=== PATIENT | male | born 1980 | race Native Hawaiian/Other Pacific Islander ===

== ENCOUNTER 2018-08-06 11:27 | Emergency (ER) | payer SELFPAY ==
[2018-08-06] MEDS ORDERED: IPRATROPIUM/ALBUTEROL SULFATE 3 ML AMPUL.NEB NEB ONE ×3 (11:29→13:59)
[2018-08-06] MEDS ORDERED: methylPREDNISolone SOD SUCC 125 MG/2 ML VIAL IVP ONE (11:30)
--- NOTE | 2018-08-06 11:37 | ED Physician Documentation ---
General Adult - HISTORIAN Historian: patient - HPI Stated Complaint: shortness of breath Chief Complaint: Wheezing Onset: days ago (2) Timing: still present Severity: moderate Further Comments: yes (He states that two days ago he was in a basement and he was exposed to smoke. He has a history of asthma and he has no meds currently due to insurance. Denies any fever or sick contacts. He states starting in middle of the night the wheezing started to increase. He states he has no health insurance so no asthma meds. He has triggers from time to time but has not had meds "in a while" He feels short on air and hears wheezing. He reports he has tried to do deep breathing to help lessen anxiety . No fever.) - ROS CONST: no problems - PAST HX Past History: asthma Immunizations: UTD Allergies/Adverse Reactions: Allergies Allergy/AdvReac Type Severity Reaction Status Date / Time No Known Allergies Allergy Verified 08/06/18 12:48 Home Medications: Ambulatory Orders Medication Instructions Recorded NK 08/06/18 - SOCIAL HX Smoking History: non-smoker Alcohol Use: none Drug Use: none - FAMILY HX Family History: No - REVIEWED ASSESSMENTS Nursing Assessment Reviewed: Yes Vitals Reviewed: Yes Progress - Progress Progress: 1200: discussed cxr results - he is feeling less shortness of air at this time DG 1250: per pt less shortness of air. Decreased wheezing in bases bilaterally. Exp wheezing in both upper lung hall DG 1336: decreased wheezing. No pain. DG 1354: Decrease in wheezing. Asking to go home DG 1425: Decrease further in wheezing. DG ED Results Lab/Radiology - Radiology Radiology Impressions: HISTORY: 37-year-old male with cough, wheezing, shortness of breath, former smoker. COMPARISON: None available. TECHNIQUE: Single portable AP view of the chest was performed. FINDINGS: No pneumothorax, consolidative infiltrates, or pulmonary edema. The heart is not enlarged. IMPRESSION: Unremarkable portable chest. Electronically signed on Aug 06, 2018 11:56:06 AM KITCHEN STEWARD by: Abner Spicer - Orders Orders: ED Orders Category Date Time Status Assess pulse oximetry Q1H Care 08/06/18 11:29 Ordered IV Started NOW Care 08/06/18 11:30 Ordered CBC/PLATELET/DIFF Routine Lab 08/06/18 Ordered CMP Routine Lab 08/06/18 Ordered Ipratropium/Albuterol Sulfate [Duoneb] Med 08/06/18 11:30 Discontinued 3 ml NEB .STK-MED ONE Ipratropium/Albuterol Sulfate [Duoneb] Med 08/06/18 11:29 Once 3 ml NEB NOW ONE methylPREDNISolone SOD SUCC [Solu-MEDROL] Med 08/06/18 11:30 Once 125 mg IVP NOW ONE Oxygen Daily Oxygen 08/06/18 11:30 Ordered General Adult Physical Exam - PHYSICAL EXAM GENERAL APPEARANCE: mild distress EENT: eye inspection normal, no signs of dehydration NECK: normal inspection RESPIRATORY: wheezes, other (mild resp distress. Wheezing noted in all lung hall. ) CVS: reg rate & rhythm, heart sounds normal, equal pulses, no murmur ABDOMEN: soft, no distension BACK: normal inspection SKIN: warm/dry, normal color EXTREMITIES: non-tender, normal range of motion, no evidence of injury, no edema NEURO: oriented X3 Discharge Clincal Impression: Asthma Qualifiers: Asthma severity: mild Asthma persistence: unspecified Asthma complication type: with acute exacerbation Qualified Code(s): J45.901 - Unspecified asthma with (acute) exacerbation Referrals: Primary Doctor,No [Primary Care Provider] - 2 Days Comments: 1. Fill inhaler RX 2. Albuterol solution in neb machine every 4 hours as needed for cough or wheezing 3. Medrol Dose pack start in am - as directed 4. Increase fluids 5. Avoid exposures 6. Follow up with PCP in 2-4 days 7. Return to ER for any concerns Condition: Stable Disposition: 01 HOME, SELF-CARE Decision to Admit: NO Date of Decison to Admit: 08/06/18 Decision Time: 14:26
[2018-08-06] MEDS ORDERED: BUDESONIDE 0.5MG/2ML AMPUL.NEB NEB ONE (11:53)
--- NOTE | 2018-08-06 11:57 | Diagnostic Imaging Report ---
JOEL MEJIA [facility] [address] [facility] [address] [place], [place]. [address] Report Submission Date: Aug 06, 2018 11:56:06 AM OPTICAL LATHE OPERATOR Patient Study Name: QUYEN WANG Date: Aug 06, 2018 11:38:30 AM OPTICAL LATHE OPERATOR Modality Type: DX Gender: M Description: CHEST : 82 Institution: [facility] Physician: JOEL MEJIA HISTORY: 37-year-old male with cough, wheezing, shortness of breath, former smoker. COMPARISON: None available. TECHNIQUE: Single portable AP view of the chest was performed. FINDINGS: No pneumothorax, consolidative infiltrates, or pulmonary edema. The heart is not enlarged. IMPRESSION: Unremarkable portable chest. Electronically signed on Aug 06, 2018 11:56:06 AM OPTICAL LATHE OPERATOR by: Abner JOSEPH
[2018-08-06] MEDS ORDERED: ALBUTEROL SULFATE 2.5 MG/3 ML AMPUL.NEB NEB ONE (12:50)
[2018-08-06 13:41] LABS: TOTAL PROTEIN 7.7 g/dL (6.0-8.5)
[2018-08-06 14:46] VITALS: BP 159/92
[2018-08-07 08:27] LABS: MEAN CORPUSCULAR HEMOGLOBIN 27.1 pg (28.0-34.0)
[2018-08-07 08:28] LABS: BASOPHILS % 0.6 (0.0-1.5); EOSINOPHILS % 9.2 % (0.0-6.8); MONOCYTES % 6.6 % (0.0-11.0); NEUTROPHILS # 7.8 # k/uL (1.4-7.7)
== END 2018-08-06 14:36 | disposition home or self-care (01) ==
LOC: ED 11:27
DX: J45.901 Unspecified asthma with (acute) exacerbation (principal)
CPT/HCPCS: 36415; 71045; 80053; 85025; 87040; 96374; 99284; 99285; J2930; J7626; S1016